=== PATIENT | female | born 1945 | race Caucasian/White ===

== ENCOUNTER → 2021-10-30 11:22 | Outpatient (CLI) | payer MEDICARE, OTHER, SELFPAY ==
--- NOTE | 2021-10-30 | DI.RAD.S_ITS ---
PROCEDURE: XR DEXA AXIAL SKELETON INDICATIONS: Age-related osteoporosis without current fracture COMPARISON: None. FINDINGS: This blank DEXA report has been sent in error by the PACS system. The correct and complete report will be forthcoming in 1-2 days. Thank you for your patience and understanding. Dictated by: Agatha Ingram MD, PhD on 10/30/2021 at 17:09 Approved by: Agatha Ingram MD, PhD on 10/30/2021 at 17:09
== END ==
PROVIDERS: PCP Internal Medicine; Referring Provider Internal Medicine; Visit Provider Internal Medicine
DX: Z78.0 Asymptomatic menopausal state (principal); Z87.891 Personal history of nicotine dependence
CPT/HCPCS: 77080